=== PATIENT | female | born 1940 | race Caucasian/White ===

== ENCOUNTER 2018-09-12 15:38 | Outpatient (CLI) | payer MEDICARE ==
--- NOTE | 2018-09-12 17:19 | RAD ---
RIGHT KNEE FOUR VIEWS: 09/12/18 HISTORY: Right knee pain. There is bone demineralization. Total knee arthroplasty changes are noted without dislocation or seferino prosthetic fracture. IMPRESSION: Bone demineralization. Total knee replacement changes without acute process. POS: [facility]
--- NOTE | 2018-09-12 17:21 | RAD ---
EXAM: RIGHT HIP TWO VIEWS: 09/12/18 HISTORY: Right hip pain. FINDINGS/IMPRESSION: Bone demineralization with some degenerative changes of the greater trochanter and arthrosis changes of the hip joint without acute fracture or dislocation. POS: [facility]
--- NOTE | 2018-09-12 17:29 | RAD ---
EXAM: LUMBAR SPINE FOUR VIEWS INCLUDING FLEXION AND EXTENSION LATERAL VIEWS: 09/12/18 HISTORY: Low back pain. COMPARISON: 11/14/09. Multilevel disc osteophytosis. Stable mild grade I anterolisthesis of L4 on L5 without significant ab normal translation between flexion and extension. Overall stable from prior study. IMPRESSION: Significant multilevel spondylosis. Stable grade I anterolisthesis of L4 on L5. No abnormal translati on. POS: [facility]
== END 2018-09-12 15:39 | disposition home or self-care (01) ==
LOC: RAD 15:38
PROVIDERS: ATTEND Nurse Practitioner Family
DX: M54.5 Low back pain (principal); M25.551 Pain in right hip; M25.561 Pain in right knee; M43.16 Spondylolisthesis, lumbar region; M47.816 Spondylosis without myelopathy or radiculopathy, lumbar region; M16.11 Unilateral primary osteoarthritis, right hip; Z96.651 Presence of right artificial knee joint
CPT/HCPCS: 72120; 80307; G0483

== ENCOUNTER 2021-02-21 09:34 | Emergency (ER) | payer MEDICARE ==
[2021-02-21] MEDS ORDERED: Morphine 2 MG/ML VIAL ONE (11:41)
== END 2021-02-21 13:56 | disposition home or self-care (01) ==
LOC: ERS 09:34
DX: S52.121A Displaced fracture of head of right radius, initial encounter for closed fracture (principal); I42.9 Cardiomyopathy, unspecified; I10 Essential (primary) hypertension; Z79.899 Other long term (current) drug therapy; W19.XXXA Unspecified fall, initial encounter
CPT/HCPCS: 29125; 71045; 72170; 73030; 73080; 73090; 73110; 73502; 96374; 99283; J2270